=== PATIENT | male | born 1975 | race Hispanic/Latino ===

== ENCOUNTER 2020-07-17 03:33 | Emergency (ER) | payer SELFPAY ==
[2020-07-17 03:56] LABS: Bacteria/HPF None Seen HPF (None Seen); Bilirubin Negative (Negative); Blood, Urine 1+ (Negative); Clarity Clear (Clear); Glucose, Urine (Dipstick) 30 mg/dL (Negative); Ketone, Urine Negative (Negative); Leukocyte Negative Leu/uL (Negative); Nitrite Negative (Negative); Protein, Urine (Dipstick) 10 mg/dL (Neg-Trace); RBC/HPF 0-3 HPF (0-3); Specific Gravity, Urine 1.027 (1.002-1.036); Squamous Epithelial None Seen HPF (0-3); Urobilinogen Normal mg/dL (Less than 2); WBC/HPF 0-3 HPF (0-3); pH, Urine 5.5 (5.0-9.0)
[2020-07-17] MEDS ORDERED: Lidocaine Viscous Sol 2% 15 ml UD Cup ONE (04:23)
[2020-07-17] MEDS ORDERED: Ondansetron PF 4 MG/2 ML Vial ONE (04:23)
[2020-07-17] MEDS ORDERED: Mag-Al 1200 mg/1200 mg/30 ML UDCUP ONE (04:23)
[2020-07-17 05:06] LABS: #Basophils 0.1 thou/uL (0.0-0.2); #Lymphocytes 1.3 thou/uL (1.20-3.40); #Monocytes 0.3 thou/uL (0.11-0.59); #Neutrophils 7.7 thou/uL (1.40-6.50); %Basophils 0.6 % (0.0-1.0); %Eosinophils 0.5 % (0.0-10.0); %Lymphocytes 13.5 % (21.0-51.0); %Monocytes 3.2 % (0.0-10.0); %Neutrophils 82.2 % (42.0-75.0); Hemoglobin 15.5 g/dL (14.0-18.0); Mean Corpuscular HGB CONC 35.1 g/dL (32.0-36.0); Mean Corpuscular Hemoglobin 31.3 pg (27.0-31.0); Mean Corpuscular Volume 89.3 fL (78.0-98.0); Mean Platelet Volume 8.4 fL (7.4-10.4); Platelet Count 228 thou/uL (130-400); RBC Distribution Width 11.5 % (11.5-14.5); Red Blood Cell (RBC) Count 4.95 mill/uL (4.70-6.10); White Blood Cell (WBC) Count 9.4 thou/uL (4.8-10.8)
[2020-07-17 05:22] LABS: ALT (SGPT) 29 U/L (8-55); AST (SGOT) 19 U/L (5-34); Albumin 4.5 g/dL (3.5-5.0); Alkaline Phosphatase 115 U/L (40-110); Anion Gap 13 mmol/L (10-20); BUN (Urea Nitrogen) 11 mg/dL (8.9-20.6); Bilirubin, Total 0.4 mg/dL (0.2-1.2); Calc. Creatinine Clearance 0 mL/min (70-130); Calcium 9.5 mg/dL (7.8-10.44); Carbon Dioxide 26 mmol/L (22-29); Chloride 101 mmol/L (98-107); Estimated GFR-MDRD Greater than 90; Globulin 3.5 g/dL (2.4-3.5); Glucose 150 mg/dL (70-105); Lipase 15 U/L (8-78); Potassium 3.7 mmol/L (3.5-5.1); Sodium 136 mmol/L (136-145)
[2020-07-17] MEDS ORDERED: Pantoprazole 40 MG VIAL ONE (05:41)
--- NOTE | 2020-07-17 11:50 | ULT ---
PRELIMINARY REPORT/DIRECT RADIOLOGY/EMERGENCY AFTER HOURS PROCEDURE: EXAM: US Abdomen Limited, Right Upper Quadrant. CLINICAL HISTORY: HX: ABD PAIN. SEE NOTES ON LAST IMAGE. THANKS TECHNIQUE: Real-time ultrasound of the right upper quadrant with image documentation. COMPARISON: None provided. FINDINGS: LIVER: The liver demonstrates moderate diffuse hyperechoic echotexture with mild heterogeneity. GALLBLADDER: No gallstone. No wall thickening. No pericholecystic fluid. COMMON BILE DUCT: The common bile duct measures 4.1 mm. PANCREAS: Unremarkable as visualized. The distal pancreas is obscured by overlying bowel gas. RIGHT KIDNEY: The right kidney measures 10.7 x 4.5 x 6 cm. IMPRESSION: Moderate hyperechoic echotexture of the liver with mild heterogeneity. Suspect moderate hepatic steatosis. Other hepatic parenchymal disease cannot be excluded. Unremarkable gallbladder. ELECTRONICALLY SIGNED BY: Dhiraj Garcia MD Jul 17, 2020 5:20:40 AM CDT FINAL REPORT EMERGENT AFTER HOURS RIGHT UPPER QUADRANT ULTRASOUND: IMPRESSION: Agree with the preliminary interpretation. In addition, the court interpreter reports a positive sonograph ic Harris's sign, nonspecific. POS: [facility]
== END 2020-07-17 06:30 | disposition home or self-care (01) ==
LOC: ERS 03:33
DX: R10.13 Epigastric pain (principal)
CPT/HCPCS: 76705; 80053; 81003; 81015; 83690; 85025; 96374; 96375; C9113; J2405